=== PATIENT | female | born 1975 | race Caucasian/White ===

== ENCOUNTER 2017-11-27 20:16 | Emergency (ER) | payer SELFPAY ==
[~2017-11-27] VITALS: Ht 160 cm; Wt 64.8 kg
[2017-11-27] MEDS ORDERED: NAPROXEN500 MG PO (21:09)
[2017-11-27 21:23] VITALS: BP 117/73
== END 2017-11-27 22:00 | disposition home or self-care (01) ==
LOC: EME 20:16
DX: S93.401A Sprain of unspecified ligament of right ankle, initial encounter (principal); X50.9XXA Other and unspecified overexertion or strenuous movements or postures, initial encounter; Y93.01 Activity, walking, marching and hiking; Y92.833 Campsite as the place of occurrence of the external cause
CPT/HCPCS: 73610; 73630; 99281; 99284